=== PATIENT | female | born 1995 | race Caucasian/White ===

== ENCOUNTER 2018-12-29 12:02 | Emergency (ER) | payer OTHER ==
[2018-12-29 12:27] LABS: Urine Blood TRACE (NEG); Urine Glucose NEGATIVE (NEG); Urine Protein NEGATIVE (NEG); Urine pH 5.5 (5.0-7.0)
--- NOTE | 2018-12-29 12:37 | ER ---
Nurse's Notes [facility] Name: Justine Vera Age: 23 yrs Sex: Female : 1995 Arrival Date: 12/29/2018 Time: 12:05 Bed 18 Private MD: Diagnosis: Low back pain; state Presentation: 12/29 12:11 Presenting complaint: Patient states: I am 16 weeks and having lower and mid la1 back pain. Pt denies vaginal bleeding/discharge, denies urinary sx. Transition of care: patient was not received from another setting of care. Onset of symptoms was December 29, 2018. Risk Assessment: Do you want to hurt yourself or someone else? Patient reports no desire to harm self or others. Initial Sepsis Screen: Does the patient meet any 2 criteria? No. Patient's initial sepsis screen is negative. Does the patient have a suspected source of infection? No. Patient's initial sepsis screen is negative. Care prior to arrival: None. 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 - Social history:: Smoking status: Patient/guardian denies using tobacco. - Ebola Screening: : No symptoms or risks identified at this time. Screenin:28 Abuse screen: Denies threats or abuse. Nutritional screening: No deficits noted. em Tuberculosis screening: No symptoms or risk factors identified. Fall Risk None identified. Assessment: 12:24 General: Appears in no apparent distress. comfortable, Behavior is calm, cooperative. em Pain: Complains of pain in lumbar area Pain currently is 4 out of 10 on a pain scale. Neuro: Level of Consciousness is awake, alert, obeys commands, Oriented to person, place, time, situation, Appropriate for age. Cardiovascular: Capillary refill < 3 seconds Patient's skin is warm and dry. Respiratory: Airway is patent Respiratory effort is even, unlabored, Respiratory pattern is regular, symmetrical. GI: Abdomen is flat, Patient currently denies nausea, vomiting. : Denies burning with urination, discharge, vaginal bleeding. Derm: Skin is intact, is healthy with good turgor, Skin is pink, warm \T\ dry. Musculoskeletal: Capillary refill < 3 seconds, Range of motion: intact in all extremities. Vital Signs: 12:08 Pulse 87; Resp 16; Temp 97.5; Pulse Ox 100% on R/A; Weight 64.86 kg; Height 5 ft. 3 in. la1 (160.02 cm); 12:36 BP 121 / 83; la1 12:08 Body Mass Index 25.33 (64.86 kg, 160.02 cm) la1 Vitals: 12:37 Heart Tones 148 BPM. em ED Course: 12:05 Patient arrived in ED. mr 12:08 Trish Abdi F[facility]-C [facility]. kb 12:08 Piero Mitchell MD is Attending Physician. kb 12:11 Arm band placed on right wrist. la1 12:12 Triage completed. la1 12:13 Clint Calvert LVN is Primary Nurse. em 12:28 Patient has correct armband on for positive identification. Placed in gown. Bed in low em position. Call light in reach. Adult w/ patient. 12:45 No provider procedures requiring assistance completed. IV discontinued, intact, em bleeding controlled, No redness/swelling at site. Pressure dressing applied. Administered Medications: No medications were administered Outcome: 12:37 Discharge ordered by . kb 12:45 Discharged to home ambulatory. em 12:45 Condition: good 12:45 Discharge instructions given to patient, Instructed on discharge instructions, follow up and referral plans. Demonstrated understanding of instructions, follow-up care. 12:46 Patient left the ED. em Signatures: Trish Abdi FNP-C FNP-Yenifer SteinbergaMichelle mr EnrikeClint, PROGRAMMING SPECIALIST PROGRAMMING SPECIALIST em Nicholas Ortzi, RN RN la1
--- NOTE | 2018-12-29 12:38 | EDPHYS ---
Physician Documentation [facility] Name: Justine Vera Age: 23 yrs Sex: Female : 1995 Arrival Date: 12/29/2018 Time: 12:05 Bed 18 Private MD: ED Physician Piero Mitchell HPI: 12/29 12:36 This 23 yrs old Female presents to ER via Ambulatory with complaints of Back kb Pain, 16 wks . 12:36 The patient presents with pain that is acute, with no known mechanism of injury. The kb symptoms are located in the lumbar area. Onset: The symptoms/episode began/occurred this morning. The pain does not radiate. Associated signs and symptoms: The patient has no apparent associated signs or symptoms. The problem was sustained without known cause. Modifying factors: The patient symptoms are alleviated by nothing, the patient symptoms are aggravated by any movement. Severity of symptoms: At their worst the symptoms were mild, moderate, in the emergency department the symptoms are unchanged. The patient has not experienced similar symptoms in the past. The patient has not recently seen a physician. 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 - Social history:: Smoking status: Patient/guardian denies using tobacco. - Ebola Screening: : No symptoms or risks identified at this time. ROS: 12:35 Constitutional: Negative for fever, chills, and weight loss, ENT: Negative for injury, kb pain, and discharge, Neck: Negative for injury, pain, and swelling, Cardiovascular: Negative for chest pain, palpitations, and edema, Respiratory: Negative for shortness of breath, cough, wheezing, and pleuritic chest pain, Abdomen/GI: Negative for abdominal pain, nausea, vomiting, diarrhea, and constipation, : Negative for injury, bleeding, discharge, and swelling, MS/Extremity: Negative for injury and deformity, Skin: Negative for injury, rash, and discoloration, Neuro: Negative for headache, weakness, numbness, tingling, and seizure. 12:35 Back: Positive for pain at rest, pain with movement, of the lumbar area. Exam: 12:35 Constitutional: This is a well developed, well nourished patient who is awake, alert, kb and in no acute distress. Head/Face: Normocephalic, atraumatic. Neck: Trachea midline, no thyromegaly or masses palpated, and no cervical lymphadenopathy. Supple, full range of motion without nuchal rigidity, or vertebral point tenderness. No Meningismus. Chest/axilla: Normal chest wall appearance and motion. Nontender with no deformity. No lesions are appreciated. Cardiovascular: Regular rate and rhythm with a normal S1 and S2. No gallops, murmurs, or rubs. Normal PMI, no JVD. No pulse deficits. Respiratory: Lungs have equal breath sounds bilaterally, clear to auscultation and percussion. No rales, rhonchi or wheezes noted. No increased work of breathing, no retractions or nasal flaring. Abdomen/GI: Soft, non-tender, with normal bowel sounds. No distension or tympany. No guarding or rebound. No evidence of tenderness throughout. Skin: Warm, dry with normal turgor. Normal color with no rashes, no lesions, and no evidence of cellulitis. MS/ Extremity: Pulses equal, no cyanosis. Neurovascular intact. Full, normal range of motion. Neuro: Awake and alert, GCS 15, oriented to person, place, time, and situation. Cranial nerves II-XII grossly intact. Motor strength 5/5 in all extremities. Sensory grossly intact. Cerebellar exam normal. Normal gait. 12:35 Back: pain, that is moderate, of the lumbar area, ROM is normal, normal spinal alignment noted. Vital Signs: 12:08 Pulse 87; Resp 16; Temp 97.5; Pulse Ox 100% on R/A; Weight 64.86 kg; Height 5 ft. 3 in. la1 (160.02 cm); 12:36 BP 121 / 83; la1 12:08 Body Mass Index 25.33 (64.86 kg, 160.02 cm) la1 MDM: 12:16 Patient medically screened. kb 12:34 Data reviewed: vital signs, nurses notes. Data interpreted: Pulse oximetry: on room air kb is 100 %. Interpretation: normal. Counseling: I had a detailed discussion with the patient and/or guardian regarding: the historical points, exam findings, and any diagnostic results supporting the discharge/admit diagnosis, lab results, the need for outpatient follow up, an OB/Gyne specialist, to return to the emergency department if symptoms worsen or persist or if there are any questions or concerns that arise at home. 12/29 12:24 Order name: Urine Dipstick--Ancillary (enter results); Complete Time: 12:28 eb 12/29 12:24 Order name: Urine --Ancillary (enter results); Complete Time: 12:28 eb 12/29 12:11 Order name: Urine Dipstick-Ancillary (obtain specimen); Complete Time: 12:24 kb 12/29 12:11 Order name: Urine Test (obtain specimen); Complete Time: 12:24 kb 12/29 12:16 Order name: FHT's; Complete Time: 12:37 kb Administered Medications: No medications were administered Disposition: 15:36 Co-signature as Attending Physician, Piero Mitchell MD I agree with the assessment and kdr plan of care. Disposition: 12/29/18 12:37 Discharged to Home. Impression: Low back pain, state. - Condition is Stable. - Discharge Instructions: Back Pain in . - Medication Reconciliation Form, Thank You Letter, Antibiotic Education, Prescription Opioid Use form. - Follow up: Emergency Department; When: As needed; Reason: Worsening of condition. Follow up: Private Physician; When: 2 - 3 days; Reason: Recheck today's complaints, Continuance of care, Re-evaluation by your physician. Signatures: Dispatcher [employer] Trish Escudero, HOT MILL WORKER-C HOT MILL WORKER-Piero Ribera MD MD [facility] Clint Calvert, AGRONOMY TEACHER AGRONOMY TEACHER Nicholas Perry, RN RN la1 Corrections: (The following items were deleted from the chart) 12:35 12:34 Counseling: I had a detailed discussion with the patient and/or guardian [place] regarding: the historical points, exam findings, and any diagnostic results supporting the discharge/admit diagnosis, radiology results, the need for outpatient follow up, an OB/Gyne specialist, to return to the emergency department if symptoms worsen or persist or if there are any questions or concerns that arise at home, kb 12:46 12:37 12/29/2018 12:37 Discharged to Home. Impression: Low back pain; state. em Condition is Stable. Forms are Medication Reconciliation Form, Thank You Letter, Antibiotic Education, Prescription Opioid Use. Follow up: Emergency Department; When: As needed; Reason: Worsening of condition. Follow up: Private Physician; When: 2 - 3 days; Reason: Recheck today's complaints, Continuance of care, Re-evaluation by your physician. kb
[2018-12-29 12:51] VITALS: TEMP 97.5; O2SAT 100
[2018-12-29 12:52] VITALS: BP 121/83
== END 2018-12-29 12:46 | disposition home or self-care (01) ==
LOC: ER 12:02
DX: O26.892 Other specified pregnancy related conditions, second trimester (principal); M54.5 Low back pain
CPT/HCPCS: 81003; 81025; 99283

== ENCOUNTER 2024-02-06 07:39 | Emergency (ER) | payer OTHER, SELFPAY ==
[2024-02-06] MEDS ORDERED: FLUORESCEIN SODIUM 1 MG/WRAP ONE (09:04)
[2024-02-06] MEDS ORDERED: TETRACAINE HCL 0.5% 4ML OPTH ONE (09:04)
[2024-02-06] MEDS ORDERED: TOBRAMYCIN SULF 0.3% OPTH OINT ONE (09:46)
--- NOTE | 2024-02-06 10:26 | ER ---
Nurse's Notes [facility] Name: Justine Vera Age: 28 yrs Sex: Female : 1995 Arrival Date: 02/06/2024 Time: 07:39 Bed 3 Private MD: Diagnosis: Ocular pain, right eye-blurry vision Presentation: 02/05 07:47 Chief complaint: Patient states: R eye pain, tearing, blurred vision started when she ll1 awoke today. No fever. Coronavirus screen: Client denies travel out of the [place] in the last 14 days. At this time, the client does not indicate any symptoms associated with coronavirus-19. Ebola Screen: Patient denies travel to an Ebola-affected area in the 21 days before illness onset. Mechanism of Injury: No Mechanism of Injury. The patient reports a positive loss of vision. Initial Sepsis Screen: Does the patient meet any 2 criteria? No. Patient's initial sepsis screen is negative. Does the patient have a suspected source of infection? No. Patient's initial sepsis screen is negative. Risk Assessment: Do you want to hurt yourself or someone else? Patient reports no desire to harm self or others. Onset of symptoms was February 06, 2024. 07:47 Method Of Arrival: Ambulatory ll1 07:47 Acuity: ELIZA 3 ll1 Triage Assessment: 07:51 General: Appears uncomfortable, Behavior is calm, cooperative, appropriate for age. ll1 Pain: Complains of pain in right eye Pain currently is 8 out of 10 on a pain scale. Quality of pain is described as aching. EENT: Eyes are tearing on outer aspect of conjuctiva of right eye, iris of right eye and inner aspect of conjuctiva of right eye Reports pain in right eye. Historical: - Allergies: 07:51 No Known Allergies; ll1 - Home Meds: 07:54 Adderall XR Oral [Active]; Lexapro Oral [Active]; Vitamin D3 oral [Active]; ADK10 ll1 [Active]; BP pill for hormones [Active]; - PMHx: 07:51 Asthma; Glaucoma; ll1 - PSHx: 07:51 B glaucoma repair (Glaucoma); ll1 - Immunization history:: Adult Immunizations up to date. - Infectious Disease History:: Denies. - Social history:: Smoking status: Patient denies any tobacco usage or history of. Screenin:00 [facility] ED Fall Risk Assessment (Adult) History of falling in the last 3 months, ko1 including since admission No falls in past 3 months (0 pts) Confusion or Disorientation No (0 pts) Intoxicated or Sedated No (0 pts) Impaired Gait No (0 pts) Mobility Assist Device Used No (0 pt) Altered Elimination No (0 pt) Score/Fall Risk Level 0 - 2 = Low Risk Oriented to surroundings, Maintained a safe environment, Educated pt \T\ family on fall prevention, incl call for assistance when getting out of bed, Assessed \T\ reinforced patient's understanding of fall precautions, Provided non-skid footwear, Hourly rounding (assess needs \T\ fall precautionary measures) done. Abuse screen: Denies threats or abuse. Denies injuries from another. Nutritional screening: No deficits noted. Tuberculosis screening: No symptoms or risk factors identified. Assessment: 08:00 General: Appears in no apparent distress. uncomfortable, Behavior is calm, cooperative, ko1 appropriate for age. Pain: Complains of pain in right eye. Neuro: No deficits noted. Cardiovascular: No deficits noted. Respiratory: No deficits noted. GI: No deficits noted. : No deficits noted. EENT: Sclera/Cornea are reddened in outer aspect of conjuctiva of right eye and inner aspect of conjuctiva of right eye. Derm: No deficits noted. Musculoskeletal: No deficits noted. 09:10 Reassessment: Patient and/or family updated on plan of care and expected duration. Pain rs5 level reassessed. Patient is alert, oriented x 3, equal unlabored respirations, skin warm/dry/pink. 10:12 Reassessment: Patient and/or family updated on plan of care and expected duration. Pain rs5 level reassessed. Patient is alert, oriented x 3, equal unlabored respirations, skin warm/dry/pink. Vital Signs: 07:47 BP 119 / 86; Pulse 98; Resp 17; Pulse Ox 99% ; Weight 67.59 kg; Height 5 ft. 3 in. ; ll1 Pain 8/10; 08:01 BP 111 / 77; Pulse 72; Resp 16; Pulse Ox 97% on R/A; rs6 10:12 BP 115 / 74; Pulse 70; Resp 17; Pulse Ox 99% on R/A; rs5 07:47 Body Mass Index 26.39 (67.59 kg, 160.02 cm) ll1 07:47 Pain Scale: Adult [facility] ED Course: 07:43 Patient arrived in ED. im 07:48 Delvin Gonzáles MD is Attending Physician. [facility] 07:48 Triage completed. ll1 07:48 Arm band placed on Patient placed in an exam room, on a stretcher. ll1 08:00 Calli Cruz, RN is Primary Nurse. ko1 08:00 Patient has correct armband on for positive identification. Bed in low position. Call ko1 light in reach. Side rails up X 1. Provided Education on: meds. Pulse ox on. NIBP on. Door closed. Noise minimized. Lights dimmed. Warm blanket given. Pillow given. 09:52 Assist provider with eye exam of right eye. using fluorescein stain, Performed by Delvin Gonzáles MD Dressed with eye patch Patient tolerated well. 10:24 Eulogio Cintron MD is Referral Physician. [facility] 10:30 Patient did not have IV access during this emergency room visit. ko1 Administered Medications: 09:50 Drug: Fluorescein Ophthalmic Strip 1 strip Ophthalmic once {Note: given by Dr ja Gonzáles.} Route: Ophthalmic; Site: right eye; 10:22 Follow up: Response: No adverse reaction ko1 09:50 Drug: Tetracaine Ophthalmic Drops 0.5 % 1 drops Ophthalmic once {Note: given by Dr ja Gonzáles.} Route: Ophthalmic; Site: right eye; 10:22 Follow up: Response: No adverse reaction ko1 09:51 Drug: Tobrex Ophthalmic Ointment 0.3 % 1 application Ophthalmic in right eye once ko1 {Note: given by Dr Gonzáles.} Route: Ophthalmic; Site: right eye; 10:22 Follow up: Response: No adverse reaction ko1 Medication: 08:00 VIS not applicable for this client. ko1 Outcome: 10:25 Discharge ordered by . [facility] 10:30 Discharged to home ambulatory, ko1 10:30 Condition: stable 10:30 Discharge instructions given to patient, Instructed on discharge instructions, follow up and referral plans. Demonstrated understanding of instructions, follow-up care, 10:32 Patient left the ED. ko1 Signatures: Delvin Gonzáles MD MD cha Lewis, Lynsay, RN RN [facility] Calli Cruz, RN RN ko1 Manolo George, RN RN rs5 Simran Babin Ryan rs6
--- NOTE | 2024-02-06 10:26 | EDPHYS ---
Physician Documentation [facility] Name: Justine Vera Age: 28 yrs Sex: Female : 1995 Arrival Date: 02/06/2024 Time: 07:39 Bed 3 Private MD: ED Physician Delvin Gonzáles HPI: 02/05 09:53 This 28 yrs old Female presents to ER via Ambulatory with complaints of Eye lydia Pain, Blurred Vision. 09:53 The patient is experiencing blurred vision, pain, redness, The patient sustained None. lydia to the right eye. Onset: The symptoms/episode began/occurred 2 day(s) ago. Duration: the symptoms are continuous. Aggravated by opening eye, Alleviated by covering eye. Associated signs and symptoms: Pertinent negatives: None. Patient does not utilize any form of vision correction. Severity of symptoms: At their worst the symptoms were mild in the emergency department the symptoms are unchanged. The patient has not experienced similar symptoms in the past. Historical: - Allergies: 07:51 No Known Allergies; ll1 - Home Meds: 07:54 Adderall XR Oral [Active]; Lexapro Oral [Active]; Vitamin D3 oral [Active]; ADK10 ll1 [Active]; BP pill for hormones [Active]; - PMHx: 07:51 Asthma; Glaucoma; ll1 - PSHx: 07:51 B glaucoma repair (Glaucoma); ll1 - Immunization history:: Adult Immunizations up to date. - Infectious Disease History:: Denies. - Social history:: Smoking status: Patient denies any tobacco usage or history of. ROS: 10:18 Constitutional: Negative for fever, chills, and weight loss, ENT: Negative for injury, lydia pain, and discharge, Neck: Negative for injury, pain, and swelling, Cardiovascular: Negative for chest pain, palpitations, and edema, Respiratory: Negative for shortness of breath, cough, wheezing, and pleuritic chest pain, Abdomen/GI: Negative for abdominal pain, nausea, vomiting, diarrhea, and constipation, Back: Negative for injury and pain, : Negative for injury, bleeding, discharge, and swelling, MS/Extremity: Negative for injury and deformity, Skin: Negative for injury, rash, and discoloration, Neuro: Negative for headache, weakness, numbness, tingling, and seizure, Psych: Negative for depression, anxiety, suicide ideation, homicidal ideation, and hallucinations, Allergy/Immunology: Negative for hives, rash, and allergies, Endocrine: Negative for neck swelling, polydipsia, polyuria, polyphagia, and marked weight changes, Hematologic/Lymphatic: Negative for swollen nodes, abnormal bleeding, and unusual bruising, 10:18 Eyes: Positive for blurry vision, pain, tearing, Exam: 10:18 Constitutional: This is a well developed, well nourished patient who is awake, alert, lydia and in no acute distress. Head/Face: Normocephalic, atraumatic. ENT: Nares patent. No nasal discharge, no septal abnormalities noted. Tympanic membranes are normal and external auditory canals are clear. Oropharynx with no redness, swelling, or masses, exudates, or evidence of obstruction, uvula midline. Mucous membranes moist. Neck: Trachea midline, no thyromegaly or masses palpated, and no cervical lymphadenopathy. Supple, full range of motion without nuchal rigidity, or vertebral point tenderness. No Meningismus. Chest/axilla: Normal chest wall appearance and motion. Nontender with no deformity. No lesions are appreciated. Cardiovascular: Regular rate and rhythm with a normal S1 and S2. No gallops, murmurs, or rubs. Normal PMI, no JVD. No pulse deficits. Respiratory: Lungs have equal breath sounds bilaterally, clear to auscultation and percussion. No rales, rhonchi or wheezes noted. No increased work of breathing, no retractions or nasal flaring. Abdomen/GI: Soft, non-tender, with normal bowel sounds. No distension or tympany. No guarding or rebound. No evidence of tenderness throughout. Back: No spinal tenderness. No costovertebral tenderness. Full range of motion. Skin: Warm, dry with normal turgor. Normal color with no rashes, no lesions, and no evidence of cellulitis. MS/ Extremity: Pulses equal, no cyanosis. Neurovascular intact. Full, normal range of motion. Neuro: Awake and alert, GCS 15, oriented to person, place, time, and situation. Cranial nerves II-XII grossly intact. Motor strength 5/5 in all extremities. Sensory grossly intact. Cerebellar exam normal. Normal gait. Psych: Awake, alert, with orientation to person, place and time. Behavior, mood, and affect are within normal limits. 10:18 Eyes: Periorbital structures: appear normal, no acute changes, no abrasion, no cellulitis, no contusion, no ecchymosis, no erythema, no laceration, no swelling, Pupils: no acute changes, equal, round, and reactive to light and accomodation, Extraocular movements: intact throughout, Conjunctiva: normal, no acute changes, Corneas: are normal, no acute changes, abrasion, is not appreciated, foreign body, is not appreciated, a fluorescein strip employed to appreciate the findings, Sclera: no appreciated abnormality, Anterior chamber: normal, no acute changes, Lids and lashes: appear normal, no acute changes, funduscopic exam reveals no obvious abnormalities, Visual gan: are intact, Nystagmus: is not appreciated, Vital Signs: 07:47 BP 119 / 86; Pulse 98; Resp 17; Pulse Ox 99% ; Weight 67.59 kg; Height 5 ft. 3 in. ; ll1 Pain 8/10; 08:01 BP 111 / 77; Pulse 72; Resp 16; Pulse Ox 97% on R/A; rs6 10:12 BP 115 / 74; Pulse 70; Resp 17; Pulse Ox 99% on R/A; rs5 07:47 Body Mass Index 26.39 (67.59 kg, 160.02 cm) ll1 07:47 Pain Scale: Adult ll1 MDM: 07:48 Medical Screening Exam initiated lydia 10:23 Differential diagnosis: Corneal abrasion of Corneal ulcer of Foreign body in right eye. lydia Acute iritis of right eye. Acute glaucoma in right eye. Ultraviolet keratitis in right eye. Data reviewed: vital signs, nurses notes. Consideration of Admission/Observation Escalation of care including admission/observation considered. I considered the following discharge prescriptions or medication management in the emergency department Medications were administered in the Emergency Department. See MAR. Historians other than the Patient: pt well informed. Care significantly affected by the following chronic conditions: asthma,[place]. Counseling: I had a detailed discussion with the patient and/or guardian regarding the historical points, exam findings, and any diagnostic results supporting the discharge/admit diagnosis, the need for outpatient follow up, for definitive care, an opthalmologist. 02/05 10:07 Order name: Glucose, Ancillary Testing [facility] 02/05 08:55 Order name: Eye Tray; Complete Time: 09:50 [facility] 02/05 08:55 Order name: Blood Glucose Level; Complete Time: 09:57 [facility] 02/05 09:55 Order name: Misc. Order: patch; Complete Time: :57 [facility] Administered Medications: 09:50 Drug: Fluorescein Ophthalmic Strip 1 strip Ophthalmic once {Note: given by Dr ja Gonzáles.} Route: Ophthalmic; Site: right eye; 10:22 Follow up: Response: No adverse reaction ko1 09:50 Drug: Tetracaine Ophthalmic Drops 0.5 % 1 drops Ophthalmic once {Note: given by Dr ja Gonzáles.} Route: Ophthalmic; Site: right eye; 10:22 Follow up: Response: No adverse reaction ko1 09:51 Drug: Tobrex Ophthalmic Ointment 0.3 % 1 application Ophthalmic in right eye once ko1 {Note: given by Dr Gonzáles.} Route: Ophthalmic; Site: right eye; 10:22 Follow up: Response: No adverse reaction ko1 Disposition Summary: 02/06/24 10:25 Discharge Ordered Notes: Location: Home [facility] Problem: new lydia Symptoms: have improved lydia Condition: Stable lydia Diagnosis - Ocular pain, right eye - blurry vision lydia Followup: lydia - With: Private Physician - When: 2 - 3 days - Reason: Recheck today's complaints, Continuance of care, Re-evaluation by your physician Followup: lydia - With: Eulogio Cintron MD - When: Today - Reason: Recheck today's complaints, Continuance of care, Re-evaluation by your physician Discharge Instructions: - Discharge Summary Sheet lydia - Blurred Vision, Adult lydia - How to Use Eye Drops and Eye Ointments lydia - Eye Patch, Adult [facility] Forms: - Medication Reconciliation Form lydia - Antibiotic Education lydia - Prescription Opioid Use lydia - Patient Portal Instructions [facility] - Leadership Thank You Letter lydia Signatures: Delvin Gonzáles MD MD cha Lewis, Lynsay RN RN ll1 Calli Cruz RN RN ko1
[2024-02-06 10:53] VITALS: BP 115/74; O2SAT 99
== END 2024-02-06 10:32 | disposition home or self-care (01) ==
LOC: ER 07:39
DX: H57.11 Ocular pain, right eye (principal); H53.8 Other visual disturbances
CPT/HCPCS: 82947